=== PATIENT | female | born 1995 | race Caucasian/White ===

== ENCOUNTER → 2019-11-09 09:22 | Outpatient (CLI) | payer OTHER, SELFPAY ==
[2019-11-09 12:28] LABS: Follicle Stimulating Hormone 3.91 mIU/mL
[2019-11-09 12:33] LABS: HCG Quantitative /Beta subunit < 2.4 mIU/mL; Prolactin 19.8 ng/mL (3.0-18.6)
[2019-11-09 12:43] LABS: Thyroid Stimulating Hormone 2.13 uIU/mL (0.47-4.68)
[2019-11-09 12:44] LABS: Estradiol, Total 46.4 pg/mL
[2019-11-11 19:07] LABS: Testosterone, Free 4.1 pg/mL (0.0-4.2)
== END ==
PROVIDERS: Referring Provider Obstetrics & Gynecology; Visit Provider Obstetrics & Gynecology
DX: N91.5 Oligomenorrhea, unspecified (principal)
CPT/HCPCS: 36415; 82627; 82670; 83001; 84146; 84402; 84443; 84702

== ENCOUNTER → 2019-11-14 10:35 | Outpatient (CLI) | payer OTHER, SELFPAY ==
[2019-11-14 14:08] LABS: Prolactin 21.6 ng/mL (3.0-18.6)
[2019-11-14 14:09] LABS: Free T4, Direct Thyroxine 1.36 ng/dL (0.78-2.19)
== END ==
PROVIDERS: Referring Provider Obstetrics & Gynecology; Visit Provider Obstetrics & Gynecology
DX: R79.89 Other specified abnormal findings of blood chemistry (principal)
CPT/HCPCS: 36415; 84146; 84439

== ENCOUNTER → 2019-12-03 15:40 | Outpatient (CLI) | payer OTHER, SELFPAY ==
--- NOTE | 2019-12-03 15:41 | DI.MRI.S_ITS ---
PROCEDURE: MR HEAD/BRAIN WO/W CON INDICATIONS: Evaluate Pituitary Area. Mild elevated prolactin. TECHNIQUE: Noncontrast axial T1 spin echo, axial T2 fast spin echo, sagittal and axial FLAIR, coronal T2 fast spin echo, axial gradient echo, axial diffusion and ADC through the brain. After the administration of contrast, axial and coronal 3D VIBE or T1 spin echo with fat saturation through the brain. COMPARISON: None. FINDINGS: Image quality: Excellent. CSF Spaces: Basal cisterns are patent. No extra-axial fluid collections. Ventricles are normal in size and shape. Brain: There is a 6 x 4 x 6 mm (AP x LR x CC) focus of hypoenhancement in the left adenohypophysis consistent with a microadenoma. There is mild leftward displacement of the infundibulum. The lesion does not extend into the suprasellar region or into the cavernous sinus. There is some displacement of normal pituitary parenchyma superior to the mass into the suprasellar region slightly. Otherwise normal brain parenchymal signal intensity. Skull and face: Calvarial marrow is normal in signal. Orbits appear normal. Sinuses: Sinuses and mastoids appear clear. IMPRESSION: 6 mm focus of hypoenhancement in the left adenohypophysis consistent with microadenoma. Dictated by: Garo Stoddard M.D. on 12/04/2019 at 9:01 Approved by: Garo Stoddard M.D. on 12/04/2019 at 9:21
== END ==
PROVIDERS: PCP Specialist; Referring Provider Specialist; Visit Provider Obstetrics & Gynecology
DX: R79.89 Other specified abnormal findings of blood chemistry (principal)
CPT/HCPCS: 70553; A9579